=== PATIENT | male | born 1945 ===

== ENCOUNTER 2025-09-14 11:00 | Day surgery (SDC) | payer OTHER ==
[2025-09-01 12:44] VITALS: BP 130/66
[~2025-09-14] VITALS: Ht 180.3 cm; Wt 114.8 kg
[~2025-09-14 11:00] MED LIST: ACTOS30 MG PO; ELIGARD22.5 MG; SYNJARDY 12.5-1 EACH PO
[2025-09-14] MEDS ORDERED: METRONIDAZOLE/SODIUM CHLORIDE 500 MG/100 ML PIGGYBACK IV ONE (11:47)
[2025-09-14] MEDS ORDERED: CEFTRIAXONE SODIUM 2,000 MG VIAL ONE (11:47)
[2025-09-14] MEDS ORDERED: HEMOSTATIC MATRIX 1 KIT KIT TOP ONE (11:58)
[2025-09-14] MEDS ORDERED: DIBUCAINE 30 GM TUBE ONE (12:01)
[2025-09-14] MEDS ORDERED: POVIDONE-IODINE 118 ML BOTT TOP ONE (12:01)
[2025-09-14] MEDS ORDERED: BUPIVACAINE HCL/MPF 0.5% 30ML VIAL ONE (12:01)
[2025-09-14] MEDS ORDERED: LIDOCAINE HCL 1%/EPINEPHRINE 20ML VIAL IJ ONE (12:02)
[2025-09-14] MEDS ORDERED: PERCOCET 5-3251 EACH PO (13:29)
[2025-09-14] MEDS ORDERED: TAMSULOSIN HCL 0.4 MG CAP PO ONE ×2 (19:47→20:00)
== END 2025-09-14 22:20 | disposition home or self-care (01) ==
LOC: CIR.AMB 11:00
PROVIDERS: ATTEND Surgery
DX: C21.0 Malignant neoplasm of anus, unspecified (principal); C20 Malignant neoplasm of rectum; K62.6 Ulcer of anus and rectum; D37.5 Neoplasm of uncertain behavior of rectum; D12.8 Benign neoplasm of rectum